=== PATIENT | female | born 1995 | race Caucasian/White ===

== ENCOUNTER 2017-07-01 13:03 | Emergency (ER) | payer OTHER ==
[2017-07-01 13:33] VITALS: BP 124/89
--- NOTE | 2017-07-01 15:03 | UC ---
Echo Sow Emily, scribed for Erlin Michael MD on 07/01/17 at 1439 . HPI Febrile Illness - HPI Summary HPI Summary: This patient is a 21 year old F presenting to [facility] with a chief complaint of febrile illness since last week. The CC is described as my body temperature goes up and down. Symptoms aggravated by nothing. Symptoms alleviated by nothing. Patient reports vaginal bleeding (light spotting), urinary frequency, abdominal cramping (feel like period cramps), nausea, vomiting (2 days ago), loss of appetite (drinking apple juice and félix clemente), and headache (a few days ). Patient denies cough, rhinorrhea, sore throat, dysuria, body aches, back pain , weight gain, breast enlargement, and calf swelling. Patient reports being 10 weeks confirmed at a medical clinic. She reports an OBGYN appointment for 07/12. A0. Medications reviewed. Allergies reviewed. - History of Current Complaint Chief Complaint: UCGU Time Seen by Provider: 07/01/17 14:34 Hx Obtained From: Patient Hx Last Menstrual Period: 03/2017 Onset/Duration: Started Weeks Ago - 1, Still Present Timing: Constant Initial Severity: Moderate Current Severity: Moderate Aggravating Factors: Nothing Alleviating Factors: Nothing Associated Signs and Symptoms: Other: - vaginal bleeding (light spotting), urinary frequency, abdominal cramping (feel like period cramps), nausea, vomiting (2 days ago), loss of appetite (drinking apple juice and félix clemente), and headache (a few days). Patient denies cough, rhinorrhea, sore throat, dysuria, back pain, weight gain, breast enlargement, and calf swelling. - Allergy/Home Medications Allergies/Adverse Reactions: Allergies Allergy/AdvReac Type Severity Reaction Status Date / Time No Known Allergies Allergy Verified 07/01/17 13:33 Home Medications: Home Medications Docosahexaenoic Acid [ Dha] 1 cap PO DAILY 07/01/17 [History Confirmed 07/01/17] PMH/Surg Hx/FS Hx/Imm Hx Sensory History: Denies: Hx Deafness Opthamlomology History: Denies: Hx Legally Blind Infectious Disease History: No Infectious Disease History: Denies: Traveled Outside the [place] in Last 30 Days - Family History Known Family History: Negative: Hypertension, Diabetes - Social History Alcohol Use: None Substance Use Type: Reports: None Smoking Status (MU): Never Smoked Tobacco Review of Systems Constitutional: Fever ENT: Other - Negative cough, rhinorrhea, sore throat. Gastrointestinal: Other - abdominal cramping (feel like period cramps), nausea , vomiting (2 days ago), loss of appetite (drinking apple juice and félix clemente). Genitourinary: Other - vaginal bleeding (light spotting), urinary frequency; negative dysuria Musculoskeletal: Other: - Negative body aches, back pain, weight gain, breast enlargement, and calf swelling. Neurological: Headache All Other Systems Reviewed And Are Negative: Yes Physical Exam Triage Information Reviewed: Yes Vital Signs: Initial Vital Signs Temp 99.1 F 07/01/17 13:28 Pulse 78 07/01/17 13:28 Resp 18 07/01/17 13:28 BP 124/89 07/01/17 13:28 Pulse Ox 98 07/01/17 13:28 Vital Signs Reviewed: Yes - Additional Comments The patient is well-nourished in no acute distress and in no acute pain. The skin is warm and dry and skin color reflects adequate perfusion. HEENT: The head is normocephalic and atraumatic. The pupils are equal and reactive. The conjunctivae are clear and without drainage. Nares are patent and without drainage. Mouth reveals moist mucous membranes and the throat is without erythema and exudate. The external ears are intact. The ear canals are patent and without drainage. The tympanic membranes are intact. Neck is supple with full range of motion and non-tender. There are no carotid bruits. There is no neck vein distension. Respiratory: Chest is non-tender. Lungs are clear to auscultation and breath sounds are symmetrical and equal. Cardiovascular: Heart is tachycardic. There is no murmur or rub auscultated. There is no peripheral edema and pulses are symmetrical and equal. Abdomen: The abdomen is soft and non-tender. There are normal bowel sounds heard in all four quadrants and there is no organomegaly palpated. Musculoskeletal: There is no back pain noted. Extremities are non-tender with full range of motion. There is less than 2 seconds capillary refill. There is no peripheral edema or calf tenderness elicited. Neurological: Patient is alert and oriented to person, place and time. The patient has symmetrical motor strength in all four extremities. Cranial nerves are grossly intact. Deep tendon reflexes are symmetrical and equal in all four extremities. Psychiatric: The patient has an appropriate affect and does not exhibit any anxiety or depression. Course/Dx - Course Assessment/Plan: This patient is a 21 year old F presenting to [facility] with a chief complaint of febrile illness since last week. The CC is described as my body temperature goes up and down. Symptoms aggravated by nothing. Symptoms alleviated by nothing. Patient reports vaginal bleeding (light spotting), urinary frequency, abdominal cramping (feel like period cramps), nausea, vomiting (2 days ago), loss of appetite (drinking apple juice and félix clemente), and headache (a few days). Patient denies cough, rhinorrhea, sore throat, dysuria, body aches, back pain, weight gain, breast enlargement, and calf swelling. Patient reports being 10 weeks confirmed at a medical clinic. She reports an OBGYN appointment for 07/12. A0. Medications reviewed. Allergies reviewed. PT INSTRUCTED TO FOLLOW UP WITH PRIMARY CARE PROVIDER WITHIN FOUR WEEKS FOR HIGH BLOOD PRESSURE NOTED TODAY. PRESENT TO THE EMERGENCY DEPARTMENT FOR FURTHER EVALUATION OR IF YOU SYMPTOMS WORSEN. Patient will be discharged with follow up from PCP. The patient is agreeable with this plan. - Febrile Illness Differential Diagnoses: Fever of Unknown Origin, Other: - pregnanct, threatened miscarriage, bleeding first trimester - Diagnoses Clinic Provider Diagnoses: with spotting, dehydration Discharge - Discharge Plan Condition: Stable Disposition: HOME Patient Education Materials: First Trimester (ED) [place]errals[place] [facility] [place] [facility] [place] [place]Outside] - 2 Weeks Additional Instructions: FOLLOW UP WITH YOUR PRIMARY CARE PROVIDER WITHIN FOUR WEEKS FOR HIGH BLOOD PRESSURE NOTED TODAY. PRESENT TO THE EMERGENCY DEPARTMENT FOR FURTHER EVALUATION OR IF YOU SYMPTOMS WORSEN. The documentation as recorded by the Echo sargent Emily accurately reflects the service I personally performed and the decisions made by me, Erlin Michael MD.
== END 2017-07-01 14:55 | disposition home or self-care (01) ==
LOC: UCEAST 13:03
DX: O26.851 Spotting complicating pregnancy, first trimester (principal); E86.0 Dehydration; R50.9 Fever, unspecified; R35.0 Frequency of micturition; R51 Headache; Z3A.10 10 weeks gestation of pregnancy
CPT/HCPCS: 81003; 84702; 99211; G0463

== ENCOUNTER → 2017-07-02 12:22 | Emergency (ER) | payer MEDICAID, OTHER ==
[2017-07-02 13:18] LABS: Hematocrit 37 % (35-47); Hemoglobin 12.8 g/dl (12.0-16.0); Mean Corpuscular HGB Conc 34 g/dl (31-36); Mean Corpuscular Hemoglobin 31 pg (27-31); Mean Corpuscular Volume 91 fL (80-97); Mean Platelet Volume 8 um3 (7.4-10.4); Red Blood Count 4.11 10^6/ul (4.0-5.4); Red Cell Distribution Width 13 % (10.5-15); White Blood Count 10.8 10^3/ul (3.5-10.8)
[2017-07-02 13:35] LABS: Urine Bacteria Absent (Absent); Urine Bilirubin Negative (Negative); Urine Glucose Negative (Negative); Urine Nitrite Negative (Negative)
[2017-07-02 13:50] LABS: BUN/Creatinine Ratio 13.1 (8-20); EGFR African American 160.8 (>60); Potassium 3.7 mmol/L (3.5-5.0)
[2017-07-02 15:09] VITALS: BP 114/77
--- NOTE | 2017-07-02 15:58 | RAD ---
Indication: Approximate 10 weeks 0 days gestation based on April 23, 2017 LMP. Vaginal bleeding. Comparison: No relevant prior exams available on the [facility] for comparison. Technique: Transabdominal and transvaginal technique obstetrical ultrasound. Report: Single intrauterine gestational sac measuring 2.9 cm mean diameter corresponding to 8 weeks 0 days. Solitary pole with 1.32 cm crown-rump length corresponding to 8 weeks 0 days. No movement or cardiac activity evident. The gestational sac is irregular in shape and there is a small volume of surrounding perigestational hemorrhage. Unremarkable 2.7 x 2.6 x 1.6 cm RIGHT ovary and 3.2 x 2.3 x 2.2 cm LEFT ovary. No visualized extra ovarian adnexal region lesions evident. IMPRESSION: Nonviable single intrauterine gestation. Estimated gestational age of 8 weeks 0 days which is less than expected based on LMP without appreciable movement or cardiac activity. Additionally the gestational sac is irregular in shape with small volume of surrounding perigestational hemorrhage.
--- NOTE | 2017-07-02 17:37 | ED ---
Eris Sow Angela, scribed for Manuel To on 07/02/17 at 1311 . GI/ HPI - HPI Summary HPI Summary: This pt is a 21 y/o female, currently 10 weeks , presenting to [facility] c/o vaginal bleeding x2 days. Pt states associated symptoms of abdominal cramping. Pt reports she started spotting yesterday and went to Urgent Care. She was told that it was normal and didn't have an US done. Today, she notes she had more blood upon wiping in the morning. Pt denies back pain, fever, chills, headache, dizziness, SOB, chest pain. There are no aggravating or alleviating factors. She states her PCP is in [facility] and has not seen an OBGYN yet. LNMP: April 08. She denies tobacco or alcohol use. - History of Current Complaint Chief Complaint: EDVaginalBleeding Time Seen by Provider: 07/02/17 12:31 Stated Complaint: VAG BLEEDING/10WKS PREG Hx Obtained From: Patient Hx Last Menstrual Period: 03/2017 Onset/Duration: Started Days Ago Timing: Lasting Days Vaginal Bleeding Description: Bright Red Pain Intensity: 0 Pain Characteristics: Cramping Associated Signs and Symptoms: Positive: Abdominal Pain - cramping. Negative: Back Pain, Dizziness, Fever Aggravating Factor(s): Nothing Alleviating Factor(s): Nothing - Allergy/Home Medications Allergies/Adverse Reactions: Allergies Allergy/AdvReac Type Severity Reaction Status Date / Time No Known Allergies Allergy Verified 07/01/17 13:33 PMH/Surg Hx/FS Hx/Imm Hx Endocrine/Hematology History: Denies: Hx Diabetes Cardiovascular History: Denies: Hx Hypertension Respiratory History: Denies: Hx Asthma Sensory History: Denies: Hx Legally Blind, Hx Deafness Opthamlomology History: Denies: Hx Legally Blind Infectious Disease History: No Infectious Disease History: Denies: Traveled Outside the [place] in Last 30 Days - Family History Known Family History: Negative: Hypertension, Diabetes - Social History Alcohol Use: None Substance Use Type: Reports: Marijuana Substance Use Comment - Amount & Last Used: occasional Smoking Status (MU): Never Smoked Tobacco Review of Systems Negative: Fever, Chills Eyes: Negative ENT: Negative Negative: Chest Pain Negative: Shortness Of Breath Positive: Abdominal Pain - cramping Positive: other - vaginal bleeding. Negative: dysuria, hematuria Skin: Negative Neurological: Negative All Other Systems Reviewed And Are Negative: Yes Physical Exam Triage Information Reviewed: Yes Vital Signs On Initial Exam: Initial Vitals Temp Pulse Resp BP Pulse Ox 97.3 F 74 17 131/77 100 07/02/17 12:24 07/02/17 12:24 07/02/17 12:24 07/02/17 12:24 07/02/17 12:24 Vital Signs Reviewed: Yes Appearance: Positive: Well-Appearing, No Pain Distress Skin: Positive: Warm, Skin Color Reflects Adequate Perfusion, Dry Head/Face: Positive: Normal Head/Face Inspection Eyes: Positive: EOMI, ANNE-MARIE ENT: Positive: Normal ENT inspection Neck: Positive: Supple, Nontender Respiratory/Lung Sounds: Positive: Clear to Auscultation, Breath Sounds Present Cardiovascular: Positive: RRR, Pulses are Symmetrical in both Upper and Lower Extremities Abdomen Description: Positive: Nontender, Soft Bowel Sounds: Positive: Present Musculoskeletal: Positive: Normal, Strength/ROM Intact Neurological: Positive: Normal, Sensory/Motor Intact, Alert, Oriented to Person Place, Time Diagnostics - Vital Signs Vital Signs Temp Pulse Resp BP Pulse Ox 07/02/17 12:58 82 100 07/02/17 12:56 117/75 07/02/17 12:53 98.2 F 88 18 117/75 100 07/02/17 12:24 97.3 F 74 17 131/77 100 - Laboratory Result Diagrams: 07/02/17 13:10 07/02/17 13:10 Lab Statement: Any lab studies that have been ordered have been reviewed, and results considered in the medical decision making process. - Ultrasound No standard instances Ultrasound Interpretation: Positive (See Comments) - US IMPRESSION: Nonviable single intrauterine gestation. Estimated gestational age of 8 weeks 0 days which is less than expected based on LMP without appreciable movement or cardiac activity. Additionally the gestational sac is irregular in shape with small volume of surrounding perigestational hemorrhage. ED physician has reviewed this radiology report and agrees. Ultrasound Interpretation Completed By: Radiologist Re-Evaluation - Re-Evaluation First Eval Re-Evaluation Time: 16:35 Comment: I reviewed the results and plan with the pt. GIGU Course/Dx - Course Assessment/Plan: This pt is a 21 y/o female, currently 10 weeks , presenting to [facility] c/o vaginal bleeding x2 days. Pt states associated symptoms of abdominal cramping. Bloodwork, UA, and US were obtained. US shows a nonviable single intrauterine gestation. Estimated gestational age of 8 weeks 0 days which is less than expected based on LMP without appreciable movement or cardiac activity. I spoke with Dr. Rey who will follow up with the pt. Pt will be discharged with a dx of missed . - Diagnoses Provider Diagnoses: Missed - Physician Notifications Discussed Care Of Patient With: Gena Rey Time Discussed With Above Provider: 16:31 Instructed by Provider To: Other - I discussed the pt's case with Dr. Rey. She recommends the pt to follow up with her for a missed . Discharge - Discharge Plan Condition: Stable Disposition: HOME Patient Education Materials: Miscarriage (ED) Referrals: No Primary Care Phys,NOPCP [Primary Care Provider] - Gena Rey MD [Medical Doctor] - Additional Instructions: Please call ROSALIO Patten, tomorrow to make an appointment. Please follow up with Dr. Rey. The documentation as recorded by the Eris sargent Angela accurately reflects the service I personally performed and the decisions made by me, Manuel To.
== END | disposition home or self-care (01) ==
LOC: ED 12:22
DX: O20.0 Threatened abortion (principal); Z3A.10 10 weeks gestation of pregnancy
CPT/HCPCS: 36415; 76815; 80053; 81003; 81015; 84702; 85025; 85610; 85730; 86850; 86900; 86901; 87086; 99283

== ENCOUNTER 2017-07-03 08:30 | Emergency (ER) | payer MEDICAID ==
[2017-07-03] MEDS ORDERED: NS 0.9% 1000 ML* 1,000 ML IV ONE ×2 (08:45→09:49)
[2017-07-03] MEDS ORDERED: HYDROcodone/ACETAMIN 5-325 MG* 1 TAB PO ONE ×3 (09:03→13:12)
[2017-07-03 09:09] LABS: Hematocrit 35 % (35-47); Hemoglobin 11.7 g/dl (12.0-16.0); Mean Corpuscular HGB Conc 33 g/dl (31-36); Mean Corpuscular Hemoglobin 30 pg (27-31); Mean Corpuscular Volume 91 fL (80-97); Mean Platelet Volume 8 um3 (7.4-10.4); Red Blood Count 3.86 10^6/ul (4.0-5.4); Red Cell Distribution Width 13 % (10.5-15); White Blood Count 12.5 10^3/ul (3.5-10.8)
[2017-07-03 09:25] LABS: Albumin 4.1 g/dL (3.2-5.2); C Reactive Protein 2.48 mg/L (< 5.00); Calcium 9.2 mg/dL (8.6-10.3); EGFR African American 139.5 (>60); EGFR Non-African American 108.5 (>60); Globulin 2.8 g/dL (2-4); Potassium 3.6 mmol/L (3.5-5.0); Total Bilirubin 1.2 mg/dL (0.2-1.0); Total Protein 6.9 g/dL (6.4-8.9)
--- NOTE | 2017-07-03 11:16 | RAD ---
Indication: Vaginal bleeding. Real-time sonography of the was formed. There is no evidence of intrauterine noted. Endometrial echo measures 26 mm with no evidence of a gestational sac. The right ovary measures 3.6 x 1.6 x 2.1 cm. Left ovary measures 2.8 x 2.2 x 2.3 cm. The ovaries are unremarkable. No adnexal masses are noted. IMPRESSION: No evidence of intrauterine . No adnexal masses are noted.
--- NOTE | 2017-07-03 13:23 | ED ---
Eris Sow Angela, scribed for Carlos Gomez MD on 07/03/17 at 0944 . - HPI Summary HPI Summary: This pt is a 21 y/o female, currently 10 weeks , presenting to [facility] c/ o heavy vaginal bleeding x2 days. Pt reports she had a fever for three days 5 days ago. She went to Urgent care 2 days ago for vaginal spotting. Pt was here yesterday for increased vaginal bleeding and was told to follow up with an OBGYN for a missed . Pt states associated symptoms of headache, abd pain , and lower back pain. She notes there has been a lot of vaginal bleeding since yesterday. Her abd pain is rated 7 out of 10 in severity. She notes her PCP is in [facility] and her plan was to go to all her OBGYN appointments there (her next appointment is on 07/12). Pt would like to be discharged quickly and follow up in [facility]. LNMP: around April 17. - History of Current Complaint Chief Complaint: EDOBProblems Stated Complaint: VAG BLEEDING Time Seen by Provider: 07/03/17 09:23 Hx Obtained From: Patient Chief Complaint: Vaginal Bleeding Onset/Duration: Started Days Ago Timing: Lasting Days Pain Intensity: 7 Location of Pain: Diffuse Aggravating Factors: Nothing Alleviating Factors: Nothing Associated Signs and Symptoms: Positive: Back Pain, Fever, Vaginal Bleeding or Discharge. Negative: Urinary Symptoms - Assessment Hx Now: Yes Hx Hysterectomy: No - Allergies/Home Medications Allergies/Adverse Reactions: Allergies Allergy/AdvReac Type Severity Reaction Status Date / Time No Known Allergies Allergy Verified 07/03/17 08:50 PMH/Surg Hx/FS Hx/Imm Hx Endocrine/Hematology History: Denies: Hx Diabetes Cardiovascular History: Denies: Hx Hypertension Respiratory History: Denies: Hx Asthma Sensory History: Denies: Hx Legally Blind, Hx Deafness Opthamlomology History: Denies: Hx Legally Blind Infectious Disease History: No Infectious Disease History: Denies: Traveled Outside the [place] in Last 30 Days - Family History Known Family History: Negative: Hypertension, Diabetes - Social History Alcohol Use: None Substance Use Type: Reports: Marijuana Substance Use Comment - Amount & Last Used: occasional Smoking Status (MU): Never Smoked Tobacco Review of Systems Positive: Fever - now resolved Eyes: Negative ENT: Negative Cardiovascular: Negative Respiratory: Negative Positive: Abdominal Pain Positive: other - vaginal bleeding Positive: Other - low back pain Skin: Negative Positive: Headache All Other Systems Reviewed And Are Negative: Yes Physical Exam - Physical Exam Triage Information Reviewed: Yes Vital Signs On Initial Exam: Initial Vitals Temp Pulse Resp BP Pulse Ox 98.1 F 95 20 129/80 99 07/03/17 08:36 07/03/17 08:36 07/03/17 08:36 07/03/17 08:36 07/03/17 08:36 Vital Signs Reviewed: Yes Appearance: Positive: Well-Appearing, No Pain Distress Skin: Positive: Warm, Skin Color Reflects Adequate Perfusion, Dry Head/Face: Positive: Normal Head/Face Inspection Eyes: Positive: EOMI, ANNE-MARIE ENT: Positive: Normal ENT inspection Neck: Positive: Supple, Nontender Respiratory/Lung Sounds: Positive: Clear to Auscultation, Breath Sounds Present Cardiovascular: Positive: RRR Abdomen Description: Positive: Soft, Other: - Mild suprapubic tenderness. She has mild tenderness in the right flank. Bowel Sounds: Positive: Present Musculoskeletal: Positive: Normal, Strength/ROM Intact Neurological: Positive: Normal, Sensory/Motor Intact, Alert, Oriented to Person Place, Time Psychiatric: Positive: Other - upset Diagnostics - Vital Signs Vital Signs Temp Pulse Resp BP Pulse Ox 07/03/17 09:30 108 119/80 07/03/17 09:00 98.1 F 82 16 119/72 100 07/03/17 08:36 98.1 F 95 20 129/80 99 - Laboratory Lab Results: Lab Results 07/03/17 07/03/17 07/03/17 Range/Units 09:00 09:00 09:00 WBC 12.5 H (3.5-10.8) 10^3/ul RBC 3.86 L (4.0-5.4) 10^6/ul Hgb 11.7 L (12.0-16.0) g/dl Hct 35 (35-47) % MCV 91 (80-97) fL MCH 30 (27-31) pg MCHC 33 (31-36) g/dl RDW 13 (10.5-15) % Plt Count 324 (150-450) 10^3/ul MPV 8 (7.4-10.4) um3 Neut % (Auto) 75.4 (38-83) % Lymph % (Auto) 15.3 L (25-47) % [place] % (Auto) 7.6 (1-9) % Eos % (Auto) 1.2 (0-6) % Baso % (Auto) 0.5 (0-2) % Absolute Neuts (auto) 9.4 H (1.5-7.7) 10^3/ul Absolute Lymphs (auto) 1.9 (1.0-4.8) 10^3/ul Absolute Monos (auto) 0.9 H (0-0.8) 10^3/ul Absolute Eos (auto) 0.1 (0-0.6) 10^3/ul Absolute Basos (auto) 0.1 (0-0.2) 10^3/ul Absolute Nucleated RBC 0.01 10^3/ul Nucleated RBC % 0.1 INR (Anticoag Therapy) 1.06 (0.89-1.11) APTT 26.3 (26.0-36.3) seconds Sodium 135 (133-145) mmol/L Potassium 3.6 (3.5-5.0) mmol/L Chloride 103 (101-111) mmol/L Carbon Dioxide 26 (22-32) mmol/L Anion Gap 6 (2-11) mmol/L BUN 9 (6-24) mg/dL Creatinine 0.69 (0.51-0.95) mg/dL Est GFR ( Amer) 139.5 (>60) Est GFR (Non-Af Amer) 108.5 (>60) BUN/Creatinine Ratio 13.0 (8-20) Glucose 92 (70-100) mg/dL Lactic Acid (0.5-2.0) mmol/L Calcium 9.2 (8.6-10.3) mg/dL Total Bilirubin 1.20 H (0.2-1.0) mg/dL AST 13 (13-39) U/L ALT 11 (7-52) U/L Alkaline Phosphatase 42 (34-104) U/L C-Reactive Protein 2.48 (< 5.00) mg/L Total Protein 6.9 (6.4-8.9) g/dL Albumin 4.1 (3.2-5.2) g/dL Globulin 2.8 (2-4) g/dL Albumin/Globulin Ratio 1.5 (1-3) Beta HCG, Quant Pending 07/03/17 Range/Units 09:00 WBC (3.5-10.8) 10^3/ul RBC (4.0-5.4) 10^6/ul Hgb (12.0-16.0) g/dl Hct (35-47) % MCV (80-97) fL MCH (27-31) pg MCHC (31-36) g/dl RDW (10.5-15) % Plt Count (150-450) 10^3/ul MPV (7.4-10.4) um3 Neut % (Auto) (38-83) % Lymph % (Auto) (25-47) % [place] % (Auto) (1-9) % Eos % (Auto) (0-6) % Baso % (Auto) (0-2) % Absolute Neuts (auto) (1.5-7.7) 10^3/ul Absolute Lymphs (auto) (1.0-4.8) 10^3/ul Absolute Monos (auto) (0-0.8) 10^3/ul Absolute Eos (auto) (0-0.6) 10^3/ul Absolute Basos (auto) (0-0.2) 10^3/ul Absolute Nucleated RBC 10^3/ul Nucleated RBC % INR (Anticoag Therapy) (0.89-1.11) APTT (26.0-36.3) seconds Sodium (133-145) mmol/L Potassium (3.5-5.0) mmol/L Chloride (101-111) mmol/L Carbon Dioxide (22-32) mmol/L Anion Gap (2-11) mmol/L BUN (6-24) mg/dL Creatinine (0.51-0.95) mg/dL Est GFR ( Amer) (>60) Est GFR (Non-Af Amer) (>60) BUN/Creatinine Ratio (8-20) Glucose (70-100) mg/dL Lactic Acid 0.7 (0.5-2.0) mmol/L Calcium (8.6-10.3) mg/dL Total Bilirubin (0.2-1.0) mg/dL AST (13-39) U/L ALT (7-52) U/L Alkaline Phosphatase (34-104) U/L C-Reactive Protein (< 5.00) mg/L Total Protein (6.4-8.9) g/dL Albumin (3.2-5.2) g/dL Globulin (2-4) g/dL Albumin/Globulin Ratio (1-3) Beta HCG, Quant Result Diagrams: 07/03/17 09:00 07/03/17 09:00 Lab Statement: Any lab studies that have been ordered have been reviewed, and results considered in the medical decision making process. - Ultrasound No standard instances Ultrasound Interpretation: No Acute Changes - Transvaginal US IMPRESSION: No evidence of intrauterine . No adnexal masses are noted. ED physician has reviewed this radiology report and agrees. Ultrasound Interpretation Completed By: Radiologist Re-Evaluation - Re-Evaluation First Eval Re-Evaluation Time: 11:36 Comment: I reviewed the transvaginal US results with the pt. Second Eval Re-Evaluation Time: 12:50 Comment: Pt reports decreased vaginal bleeding. Course/Dx - Course Assessment/Plan: This pt is a 21 y/o female, currently 10 weeks , presenting to [facility] c/o heavy vaginal bleeding x2 days. Pt reports she had a fever for three days 5 days ago. She went to Urgent care 2 days ago for vaginal spotting. Pt was here yesterday for increased vaginal bleeding and was told to follow up with an OBGYN for a missed . Pt states associated symptoms of headache, abd pain, and lower back pain. She notes there has been a lot of vaginal bleeding since yesterday. Her abd pain is rated 7 out of 10 in severity. She notes her PCP is in [facility] and her plan was to go to all her OBGYN appointments there (her next appointment is on 07/12). LNMP: around April 17. Labs, UA, and transvaginal US were obtained. In the ED course, pt was given IV fluids and hydrocodone. BP noted and advised to follow up with her PCP. Medications reviewed. DISCUSSED WITH DR URBAN. PATIENT USED 4 PADS OVER HER 3 HOURS IN ED. THE BLEEDING DECREASED IN VOLUME. U/S SHOWS THE IS COMPLETE. BP STABLE IN ED. OVERALL, THE HR ALSO NORMALIZED AT REST; PATIENT STILL HAD INCREASED HR WITH STANDING. BLOOD TYPE A POSITIVE. PATIENT WISHES TO GO BACK HOME TO [facility]. I DISCUSSED HER SEEKING MEDICAL CARE FOR ANY WORSENING OF HER CONDITION; SHE AGREED. SHE WILL F/U WITH HER HEALTH CARE PROVIDER IN [facility]. NO CRITICAL CARE TIME. - Diagnoses Provider Diagnoses: Complete miscarriage Discharge - Discharge Plan Condition: Stable Disposition: HOME Prescriptions: HYDROcodone/ACETAMIN 5-325 MG* [[place] 5-325 TAB*] 1 tab PO Q4H PRN #10 tab MDD 6 PRN Reason: Pain Patient Education Materials: Miscarriage (ED) Forms: *School Release, *Work Release Referrals: [facility] [Provider Group] [facility] @ [Outside] Mitch Urban MD [Medical Doctor] - Additional Instructions: FOLLOW UP WITH YOUR DOCTOR. RETURN TO THE EMERGENCY DEPARTMENT FOR ANY WORSENING OF YOUR CONDITION; EXCESSIVE BLEEDING, WEAKNESS, YOU FEEL LIKE YOU ARE GOING TO PASS, PAIN OUT OR QUESTIONS OR CONCERNS. The documentation as recorded by the Eris sargent Angela accurately reflects the service I personally performed and the decisions made by me, Carlos Gomez MD.
[2017-07-03 13:32] VITALS: BP 110/63
== END 2017-07-03 13:32 | disposition home or self-care (01) ==
LOC: ED 08:30
DX: O03.9 Complete or unspecified spontaneous abortion without complication (principal); M54.9 Dorsalgia, unspecified; N93.9 Abnormal uterine and vaginal bleeding, unspecified; R50.9 Fever, unspecified; R51 Headache
CPT/HCPCS: 36415; 76817; 80053; 83605; 84702; 85025; 85610; 85730; 86140; 99283